=== PATIENT | male | born 1970 | race Caucasian/White ===

== ENCOUNTER 2021-11-08 13:52 | Emergency (ER) | payer MEDICARE ==
[2021-11-08 14:30] LABS: HEMOGLOBIN 17.4 gm/dl (14.0-17.5); RED BLOOD COUNT 5.35 M/UL (4.20-5.50); WHITE BLOOD COUNT 8.5 K/UL (4.5-11.0)
[2021-11-08 14:50] LABS: BUN/CREATININE RATIO 15 (0-10)
== END 2021-11-08 15:43 | disposition left against medical advice (07) ==
LOC: ER1 13:52
PROVIDERS: Physician Assistant
DX: R55 Syncope and collapse (principal); R51.9 Headache, unspecified; R80.9 Proteinuria, unspecified; R79.89 Other specified abnormal findings of blood chemistry; R91.8 Other nonspecific abnormal finding of lung field; I10 Essential (primary) hypertension; R11.0 Nausea
CPT/HCPCS: 70450; 71045; 80053; 80307; 81001; 82550; 82553; 84484; 85025; 85379; 93005; 99283